=== PATIENT | male | born 1945 | race Asian ===

== ENCOUNTER 2019-04-06 14:38 | Emergency (ER) | payer OTHER ==
[~2019-04-06] VITALS: Ht 188 cm; Wt 72.6 kg
[2019-04-06 15:07] LABS: PLATELET COUNT 153 K/uL (142-355)
[2019-04-06 15:17] LABS: POTASSIUM 4.4 mmol/L (3.6-5.2)
[2019-04-06 16:05] VITALS: BP 146/76; TEMP 98
[2019-04-06] MEDS ORDERED: AMLODIPINE BESYLATE PO (17:09)
[2019-04-06] MEDS ORDERED: LORA0.5T17 PO (17:10)
[2019-04-06] MEDS ORDERED: CARV12.5 PO (17:12)
[2019-04-06] MEDS ORDERED: GLIP10TA55 PO (17:12)
[2019-04-06] MEDS ORDERED: CVS NICOTI14 MG/241 TD (17:13)
[2019-04-06] MEDS ORDERED: PRAVASTATIN10 MG PO (17:14)
[2019-04-06] MEDS ORDERED: RISP0.25 PO (17:15)
[2019-04-06] MEDS ORDERED: SEROQUEL25 MG PO (17:16)
[2019-04-06] MEDS ORDERED: TAMS0.4C PO (17:16)
[2019-04-06] MEDS ORDERED: VALSARTAN40 MG PO (17:17)
[2019-04-06] MEDS ORDERED: SERT100T PO (17:18)
[2019-04-06] MEDS ORDERED: BIDIL PO (17:21)
== END 2019-04-06 16:05 | disposition other institution (70) ==
LOC: ED 14:38
PROVIDERS: Emergency Medicine
DX: F03.91 Unspecified dementia, unspecified severity, with behavioral disturbance (principal); N28.9 Disorder of kidney and ureter, unspecified; Z04.6 Encounter for general psychiatric examination, requested by authority
CPT/HCPCS: 80053; 85027; 93005; 99283; 99285